=== PATIENT | male | born 1985 | race Caucasian/White ===

== ENCOUNTER → 2019-03-06 | Outpatient (CLI) | payer BC | LOC: RAD 09:39 | DX: M54.5 Low back pain (principal) ==

== ENCOUNTER → 2019-03-23 | Outpatient (CLI) | payer BC | LOC: RAD 12:00 | DX: M48.07 Spinal stenosis, lumbosacral region (principal); M51.16 Intervertebral disc disorders with radiculopathy, lumbar region; M51.17 Intervertebral disc disorders with radiculopathy, lumbosacral region; M47.26 Other spondylosis with radiculopathy, lumbar region; M47.27 Other spondylosis with radiculopathy, lumbosacral region ==

== ENCOUNTER 2019-04-04 14:24 | Outpatient (RCR) | payer BC | END 2019-04-04 15:00 | disposition still patient (30) | LOC: PT 14:24 | DX: M51.16 Intervertebral disc disorders with radiculopathy, lumbar region (principal) ==

== ENCOUNTER → 2019-04-17 | Outpatient (CLI) | payer BC ==
[2019-04-17 10:37] LABS: EOS # 0.2 (0.04-0.40); HEMATOCRIT 49.3 % (42.0-52.0); LYMPH# 2.4 (1.50-4.00); MEAN CELL VOLUME 86 fl (78-100); MEAN CORPUSCULAR HEMOGLOBIN 28 pg (27-31); MEAN CORPUSCULAR HGB CONC 33 g/dL (33-37); MEAN PLATELET VOLUME 10.3 fl (7.4-10.4); MONO # 0.5 (0.20-0.80); NEU # 3.3 (1.40-6.50); PLATELET COUNT 278 K/mm3 (130-400); RED BLOOD COUNT 5.73 M/mm3 (4.20-5.60); RED CELL DISTRIBUTION WIDTH 13.6 % (11.5-14.5); WHITE BLOOD COUNT 6.4 K/mm3 (4.8-10.8)
== END ==
LOC: LAB 10:28
DX: Z01.818 Encounter for other preprocedural examination (principal); M48.00 Spinal stenosis, site unspecified

== ENCOUNTER 2019-05-16 13:22 | Emergency (ER) | payer BC ==
[2019-05-16] MEDS ORDERED: COLACE100 M1 PO (13:41)
[2019-05-16] MEDS ORDERED: SENNA8.6 M1 PO (13:41)
[2019-05-16] MEDS ORDERED: ROBAXIN 75750 MG/TA1 PO (13:41)
[2019-05-16] MEDS ORDERED: PERCOCET 325 MG1 TAB PO (13:42)
[2019-05-16 14:16] LABS: EOS # 0.3 (0.04-0.40); EOS % 2.7 % (0.0-4.0); HEMOGLOBIN 13.8 g/dL (13.5-18.0); LYMPH# 1.8 (1.50-4.00); MEAN CELL VOLUME 85 fl (78-100); MEAN CORPUSCULAR HEMOGLOBIN 28 pg (27-31); MEAN CORPUSCULAR HGB CONC 33 g/dL (33-37); MEAN PLATELET VOLUME 10.8 fl (7.4-10.4); MONO # 0.9 (0.20-0.80); NEU # 6.6 (1.40-6.50); PLATELET COUNT 276 K/mm3 (130-400); RED BLOOD COUNT 4.94 M/mm3 (4.20-5.60); WHITE BLOOD COUNT 9.5 K/mm3 (4.8-10.8)
[2019-05-16 14:33] LABS: ALBUMIN 3.8 g/dL (3.5-5.0); POTASSIUM 3.8 mmol/L (3.5-5.1)
[2019-05-16 14:35] LABS: TOTAL PROTEIN 7.2 g/dL (6.4-8.3)
[2019-05-16 14:37] LABS: TOTAL BILIRUBIN 0.8 mg/dL (0.2-1.2)
[2019-05-16] MEDS ORDERED: ZOFRAN4 M2 PO (15:15)
[2019-05-16 15:30] VITALS: BP 142/61
== END 2019-05-16 15:40 | disposition home or self-care (01) ==
LOC: ED 13:22
PROVIDERS: Nurse Practitioner Primary Care
DX: R11.2 Nausea with vomiting, unspecified (principal); Z88.1 Allergy status to other antibiotic agents; Z98.890 Other specified postprocedural states
CPT/HCPCS: J2270; J2405; J7030

== ENCOUNTER 2021-05-21 21:43 | Emergency (ER) | payer SELFPAY ==
[~2021-05-21] VITALS: Ht 185.4 cm; Wt 127.3 kg
[~2021-05-21 21:43] MED LIST: COLACE100 M1 PO; PERCOCET 325 MG1 TAB PO; ROBAXIN 75750 MG/TA1 PO; SENNA8.6 M1 PO; ZOFRAN4 M2 PO
[2021-05-21 22:25] LABS: BASO # 0.04 (0.02-0.10); EOS # 0.27 (0.04-0.40); EOS % 2.7 % (0.0-4.0); HEMATOCRIT 47.5 % (42.0-52.0); HEMOGLOBIN 15.5 g/dL (13.5-18.0); LYMPH# 2.68 (1.50-4.00); MEAN CELL VOLUME 86 fl (78-100); MEAN CORPUSCULAR HEMOGLOBIN 28 pg (27-31); MEAN CORPUSCULAR HGB CONC 33 g/dL (33-37); MEAN PLATELET VOLUME 10.7 fl (7.4-10.4); NEU # 6.27 (1.40-6.50); PLATELET COUNT 279 K/mm3 (130-400); RED BLOOD COUNT 5.55 M/mm3 (4.20-5.60); RED CELL DISTRIBUTION WIDTH 12.8 % (11.5-14.5); WHITE BLOOD COUNT 10.1 K/mm3 (4.8-10.8)
[2021-05-21 22:34] LABS: ALBUMIN 4.3 g/dL (3.5-5.0); POTASSIUM 3.8 mmol/L (3.5-5.1)
[2021-05-21 22:36] LABS: CALCIUM 10.1 mg/dL (8.3-10.5)
[2021-05-21 22:37] LABS: TOTAL PROTEIN 7.6 g/dL (6.4-8.3)
[2021-05-21 22:39] LABS: TOTAL BILIRUBIN 0.6 mg/dL (0.2-1.2)
[2021-05-21 22:48] LABS: URINE APPEARANCE CLEAR; URINE BILIRUBIN NEGATIVE (NEGATIVE); URINE BLOOD NEGATIVE (NEGATIVE); URINE COLOR YELLOW; URINE GLUCOSE NEGATIVE (NEGATIVE); URINE KETONE 1+ (NEGATIVE); URINE LEUKOCYTE ESTERASE NEGATIVE (NEGATIVE); URINE NITRATE NEGATIVE (NEGATIVE); URINE PROTEIN(semi-quant) TRACE mg/dL (NEGATIVE); URINE UROBILINOGEN NORMAL (NORMAL); URINE WBC 0-1 /hpf (0-3)
[2021-05-21 22:49] LABS: URINE MUCUS PRESENT (NOT PRESENT)
[2021-05-22] MEDS ORDERED: CIPRO500 M1 PO (00:04)
[2021-05-22] MEDS ORDERED: FLAGYL500 M1 PO (00:04)
[2021-05-22 00:20] VITALS: BP 132/87
== END 2021-05-22 00:20 | disposition home or self-care (01) ==
LOC: ED 21:43
PROVIDERS: Physician Assistant
DX: K57.32 Diverticulitis of large intestine without perforation or abscess without bleeding (principal); Z88.1 Allergy status to other antibiotic agents
CPT/HCPCS: J1885; Q9967

== ENCOUNTER 2021-09-16 08:01 | Emergency (ER) | payer SELFPAY ==
[~2021-09-16] VITALS: Ht 185.4 cm; Wt 127.2 kg
[~2021-09-16 08:01] MED LIST changes: +CIPRO500 M1 PO; +FLAGYL500 M1 PO
[2021-09-16 08:45] LABS: BASO # 0.03 K/mm3 (0.02-0.10); EOS # 0.02 K/mm3 (0.04-0.40); EOS % 0.3 % (0.0-4.0); HEMOGLOBIN 15.8 g/dL (13.5-18.0); LYMPH# 0.76 K/mm3 (1.50-4.00); MEAN CELL VOLUME 83 fl (78-100); MEAN CORPUSCULAR HEMOGLOBIN 28 pg (27-31); MEAN CORPUSCULAR HGB CONC 34 g/dL (33-37); MEAN PLATELET VOLUME 10.7 fl (7.4-10.4); MONO # 0.88 K/mm3 (0.20-0.80); NEU # 4.97 K/mm3 (1.40-6.50); PLATELET COUNT 242 K/mm3 (130-400); RED BLOOD COUNT 5.69 M/mm3 (4.20-5.60); WHITE BLOOD COUNT 6.7 K/mm3 (4.8-10.8)
[2021-09-16 08:54] LABS: ALBUMIN 4.4 g/dL (3.5-5.0)
[2021-09-16 08:55] LABS: POTASSIUM 3.7 mmol/L (3.5-5.1); SODIUM 137 mmol/L (136-145)
[2021-09-16 08:56] LABS: CALCIUM 9.9 mg/dL (8.3-10.5)
[2021-09-16 08:57] LABS: GLUCOSE 103 mg/dL (75-110); TOTAL PROTEIN 7.7 g/dL (6.4-8.3)
[2021-09-16 08:58] LABS: CARBON DIOXIDE 22 mmol/L (22-29)
[2021-09-16 08:59] LABS: TOTAL BILIRUBIN 0.4 mg/dL (0.2-1.2)
[2021-09-16 09:02] LABS: AST-SGOT 25 U/L (5-34)
[2021-09-16 09:04] LABS: ALT/SGPT 28 U/L (0-55)
[2021-09-16 09:10] LABS: TROPONIN-I < 0.030 ng/mL (<0.030)
[2021-09-16 09:32] LABS: D-DIMER 0.98 mg/L FEU (0.15-0.50)
[2021-09-16] MEDS ORDERED: RT ALBUTEROL CC18 GM IH (10:55)
[2021-09-16] MEDS ORDERED: MORGIDOX 1X100100 MG PO (10:55)
[2021-09-16 11:06] VITALS: BP 141/76
== END 2021-09-16 11:20 | disposition home or self-care (01) ==
LOC: ED 08:01
PROVIDERS: Physician Assistant
DX: U07.1 COVID-19 (principal); J12.82 Pneumonia due to coronavirus disease 2019; Z88.1 Allergy status to other antibiotic agents
CPT/HCPCS: J7030; Q9967